=== PATIENT | male | born 1975 | race Caucasian/White ===

== ENCOUNTER 2019-02-08 17:04 | Emergency (ER) | payer SELFPAY ==
[~2019-02-08] VITALS: Ht 180.3 cm; Wt 68.2 kg
[2019-02-08 17:12] VITALS: BP 153/100
[2019-02-08] MEDS ORDERED: AZITHROMYCIN 250 MG TABLET PO ONE (18:30)
[2019-02-08] MEDS ORDERED: CefTRIAXone SODIUM 1 GM/VIAL IM ONE (18:30)
[2019-02-08] MEDS ORDERED: MetroNIDAZOLE 500 MG TABLET PO ONE (18:30)
== END 2019-02-08 19:33 | disposition home or self-care (01) ==
LOC: EMS 17:04
DX: R30.0 Dysuria (principal); R36.9 Urethral discharge, unspecified; F15.90 Other stimulant use, unspecified, uncomplicated
CPT/HCPCS: 87491; 87591; 96372; 99283; J0696

== ENCOUNTER 2023-11-16 17:30 | Emergency (ER) | payer OTHER ==
[~2023-11-16] VITALS: Ht 180.3 cm; Wt 70.5 kg
[2023-11-16] MEDS: CLINDAMYCIN HCL 150 MG CAPSULE PO ONE (20:49)
[2023-11-16] MEDS ORDERED: CLIN-142 PO (20:50)
[2023-11-16] MEDS: TraMADol HCL 50 MG TABLET PO ONE (20:55)
[2023-11-16 21:09] VITALS: BP 139/89; PULSE 90; RESP 16; TEMP 97.3; O2SAT 97
== END 2023-11-16 21:30 | disposition home or self-care (01) ==
LOC: EMS 17:30
DX: L03.012 Cellulitis of left finger (principal)
CPT/HCPCS: 10060; 99283